=== PATIENT | female | born 1995 | race Caucasian/White ===

== ENCOUNTER 2016-06-22 22:15 | Emergency (ER) | payer OTHER ==
[~2016-06-22] VITALS: Ht 157.5 cm; Wt 78.2 kg
[~2016-06-22 22:15] MED LIST: ASCO500T8 PO; Docusate Sodium PO; FERR-74 PO; IBUP800T28 PO; OXYC-284 PO
[2016-06-22 22:17] VITALS: BP 113/78; PULSE 74; RESP 16; O2SAT 94
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
[2016-06-22 23:10] VITALS: BP 113/78; PULSE 74; RESP 16; O2SAT 94
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
== END 2016-06-22 23:10 | disposition home or self-care (01) ==
LOC: SED 22:15
DX: S60.021A Contusion of right index finger without damage to nail, initial encounter (principal); W23.0XXA Caught, crushed, jammed, or pinched between moving objects, initial encounter; Y93.89 Activity, other specified; Y99.8 Other external cause status; Y92.019 Unspecified place in single-family (private) house as the place of occurrence of the external cause; J45.909 Unspecified asthma, uncomplicated

== ENCOUNTER 2016-09-14 18:36 | Emergency (ER) | payer OTHER ==
[~2016-09-14] VITALS: Ht 157.5 cm; Wt 79.5 kg
--- NOTE | 2016-09-14 18:39 | ED.REPORT ---
HPI-Dyspnea / Wheezing Date of Service Sep 14, 2016 ED Provider: Ney Cosme DO The patient is a 21 year old female with a history of asthma and eczema who presents to the ED via EMS with trouble breathing onset just prior to arrival. The patient describes feeling as though her "throat was closing," with pleuritic pain. Associated symptoms include dizziness, chills, and headache. The patient denies fever, dysuria, urinary frequency, facial pressure, cough, or other symptoms. EMS found the patient with a BP of 108/90 and a pulse of 134. She was given 2.5mg Albuterol en route, with complete relief of her symptoms. The patient has had similar symptoms in the past. Nursing Notes Stated Complaint: ASTHMA ATTACK Nursing Notes Reviewed: Yes Allergies: Coded Allergies: No Known Allergies (Unverified Allergy, Unknown, 12/06/13) Scheduled ([Docusate Sodium]) 100 MG CAPSULE 100 MG PO BID Ascorbic Acid (Vitamin C) 500 Mg Tablet 500 MG PO DAILY Ferrous Sulfate (Feosol) 325 Mg Tablet 325 MG PO DAILY Scheduled PRN Ibuprofen (Ibuprofen) 800 Mg Tablet 800 MG PO QID PRN PRN For Pain Oxycodone HCl/Acetaminophen 5-325 (Percocet 5-325) 1 Each Tablet 1-2 EACH PO Q4 PRN PRN For Pain General Time Seen by MD: 18:38 Chief Complaint Other (Trouble Breathing) Hx Obtained From: Patient Arrived By: Ambulance Sudden in Onset?: Yes Onset Occurred: Just prior to arrival Symptom Duration: Since onset Quality: Pleuritic Severity: Current: Moderate Severity: Maximum: Moderate Context Asthma History: Asthma diagnosed Recent Healthcare: No recent doctor visit Similar Sx Previous: Yes Past Medical History Past Medical History Asthma Eczema Past Surgical History None reported Smoking History Never Smoker Ambulatory Status Independent Review of Systems Review of Systems Note: + Trouble breathing described as feeling as though her "throat was closing" - Facial pressure Constitutional: Reports: Chills, Denies: Fever Respiratory: Reports: Pleuritic pain, Denies: Non-productive cough, Shortness of breath Complete sys rev & neg: except as marked. Female: Denies: Dysuria, Urinary frequency Neurologic: Reports: Dizziness, Headache Physical Exam Initial Vital Signs Vital Signs (First) Date Time Temp Pulse Resp B/P Pulse Ox O2 Delivery O2 Flow Rate FiO2 09/14/16 18:42 37.7 126 22 149/77 97 Room Air Initial VS: Reviewed Head / Eyes: Atraumatic, Normocephalic Skin: Warm, Dry, No cyanosis Neurologic: Alert, Oriented, Nonfocal General/Constitutional: Awake, Alert Neck: Supple, Full range of motion, Non-tender Respiratory / Chest: Breath sounds NL, Breath sounds = bilat, No respiratory distress Cardiovascular: Regular rhythm, Heart sounds NL Heart Rate / Rhythm: Positive: Tachycardia ENT: Airway patent, Mucous membranes moist, Pharynx NL, No facial swelling Interpretation & Diagnostics Lab Results Interpretation Result Diagram: 09/14/16184909/[id number]/161849 Test 09/14/16 18:50 09/14/16 19:18 White Blood Count 5.0th/mm3 (3.8-10.1) Red Blood Count 4.52mil/mm3 (3.90-5.20) Hemoglobin 12.9g/dL (12.0-15.6) Hematocrit 38.6% (35.0-46.0) Mean Corpuscular Volume 85.4fL (81-100) Mean Corpuscular Hemoglobin 28.5pg (27.0-35.0) Mean Corpuscular Hemoglobin Concent 33.4% (32.0-37.0) Red Cell Distribution Width 13.6% (12.3-15.4) Platelet Count 279bil/L (150-400) Neutrophils (%) (Auto) 65.8% (40-74) Lymphocytes (%) (Auto) 22.0% (14-46) Monocytes (%) (Auto) 11.6% (4-12) Eosinophils (%) (Auto) 0.2% (0-5) Basophils (%) (Auto) 0.2% (0-3) Hold Purple Top Tube Received (Received) Hold Blue Top Tube Received (Received) Sodium Level 136mEq/L (134-144) Potassium Level 3.9mEq/L (3.5-5.2) Chloride Level 101mEq/L (97-108) Carbon Dioxide Level 18mmol/L (18-29) Blood Urea Nitrogen 8mg/dL (6-20) Creatinine 0.56mg/dL (0.57-1.00) Estimat Glomerular Filtration Rate 194mL/min (>59) Glucose Level 115mg/dL (60-99) Calcium Level 9.9mg/dL (8.5-10.1) Total Bilirubin 0.2mg/dL (0.0-1.2) Aspartate Amino Transf (AST/SGOT) 20U/L (0-50) Alanine Aminotransferase (ALT/SGPT) 14U/L (0-32) Alkaline Phosphatase 84U/L (25-150) Total Protein 8.0g/dL (6.4-8.4) Albumin 4.4g/dL (3.4-5.0) Hold Arena Top Tube Received (Received) Urine Color Yellow (YELLOW) Urine Appearance Clear (CLEAR,HAZY) Urine pH 5.5 (5.0-8.0) Urine Specific [place] 1.010 (1.003-1.035) Urine Protein Negativemg/dL (NEG,TRACE) Urine Glucose (UA) Negativemg/dL (NEGATIVE) Urine Ketones Negativemg/dL (NEGATIVE) Urine Occult Blood Small (NEGATIVE) Urine Nitrite Negative (NEGATIVE) Urine Bilirubin Negative (NEGATIVE) Urine Urobilinogen Normalmg/dL (NORMAL) Urine Leukocyte Esterase Small (NEGATIVE) Urine RBC 0-2/hpf (0-2) Urine WBC 0-5/hpf (0-5) Urine Epithelial Cells Moderate/hpf (NONE-MOD) Urine Crystals None seen (NONE SEEN) Urine Bacteria Moderate/hpf (NONE-FEW) Urine Hyaline Casts None/lpf (NONE) Urine Granular Casts None seen (NONE SEEN) Urine Waxy Casts None seen (NONE SEEN) Urine Red Blood Cell Casts None seen (NONE SEEN) Urine White Blood Cell Casts None seen (NONE SEEN) Urine Mucus None seen (None Seen) Urine Trichomonas None seen (NONE SEEN) Urine Yeast None (NONE SEEN) Urinalysis Comment None Urine Culture Reflexed Indicated Hold Urine Received (Received) X-Ray Chest Interpretation Chest Xray Interpretation: IMPRESSION: No acute disease is seen in the two-view chest. Lungs are not hyperinflated. Dictated by: Oneil Palacios M.D. on 09/14/2016 at 19:44 View: AP & lat Interpretation / Wet Read by: Interpret - Radiologist Re-Eval/Medical Decision Med Decision/Clinical Course 21-year-old female with a history of asthma currently on twice daily inhaled steroids and as needed albuterol presenting with an episode of feeling that her throat was closing and feeling short of breath. EMS gave her albuterol nebulizer and her symptoms improved, however she was brought in for evaluation. Her workup today is completely negative and it seems unlikely that a flare up of asthma would resolve with 1 single dose of albuterol and have no residual symptoms, however patient states this is typical for her. I instructed her to follow up with her PCP at discharge Re-Evaluation/Progress : Time of Eval: 20:14 )( Re-Eval Resp / Chest: No respiratory distress Patient Status: Condition improved Re-Evaluation/Progress Note: Discussed with patient x-ray and lab results, diagnosis, and plan for discharge. Follow-up and return to the ER instructions given. Patient agrees with plan for care and all questions were addressed. Counseled Regarding: Diagnosis, Lab results, Need for follow-up, When/why to return to ED Discharge & Departure Impression: Primary Impression: Asthma Asthma severity: mild intermittent Asthma complication type: uncomplicated Qualified Code: J45.20 - Mild intermittent asthma, uncomplicated Disposition: Home Discharge Condition All VS Reviewed: Yes Condition: Improved Patient Instructions: Asthma (ED) Additional Instructions: Thank you for entrusting us with your care. Your exam today was reassuring for any serious illness. Your lab work and x-ray were normal. Use your emergency inhaler as needed. Keep using your steroid inhaler as prescribed. Call your primary care provider on Friday for a follow-up appointment as needed. Return to the ER with any new or worsening symptoms. Referrals: Stan Bonner MD (PCP) Scribe Attestation Portions of this note were transcribed by Symone Cortez. I, Dr. Cosme, personally performed the history, physical exam, and medical decision-making; I reviewed and confirmed the accuracy of the information in the transcribed note. Signed by: Haim Jefferson, 09/14/2016, 23:30 copies to: Stan Bonner MD, Gary R DO Sep 14, 2016 18:39 SYMONE CORTEZ Sep 14, 2016 19:24
[2016-09-14 18:42] VITALS: BP 149/77; PULSE 126; RESP 22; O2SAT 97
[2016-09-14] MEDS ORDERED: 0.9% Sodium Chloride 1,000 ML IV ONE (19:23)
[2016-09-14 19:34] LABS: BASOPHILS % (AUTO) 0.2 % (0-3); EOSINOPHILS % (AUTO) 0.2 % (0-5); MONOCYTES % (AUTO) 11.6 % (4-12); Mean Corpuscular Hemoglobin 28.5 pg (27.0-35.0); Mean Corpuscular Volume 85.4 fL (81-100); NEUTROPHILS % (AUTO) 65.8 % (40-74); Platelet Count 279 bil/L (150-400)
[2016-09-14 19:44] LABS: APPEARANCE,URINE CLEAR (CLEAR,HAZY); COLOR,URINE YELLOW (YELLOW); OCCULT BLOOD,URINE SMALL (NEGATIVE); PH,URINE 5.5 (5.0-8.0); UROBILINOGEN,URINE NORMAL (NORMAL)
--- NOTE | 2016-09-14 19:52 | DRSVH ---
PROCEDURE: X-RAY CHEST, TWO VIEWS ([id number]) INDICATIONS: shortness of breath, history of asthma TECHNIQUE: 2 views of the chest were acquired. COMPARISON: None. FINDINGS: Surgical changes and devices: None. Lungs and pleura: No pleural effusions or pneumothorax. Lungs are clear. Mediastinum: Mediastinal contours are normal. Heart size is normal. Bones and chest wall: No suspicious bony abnormalities. Soft tissues appear unremarkable. IMPRESSION: No acute disease is seen in the two-view chest. Lungs are not hyperinflated. Dictated by: Oneil Palacios M.D. on 09/14/2016 at 19:44 Approved by: Oneil Palacios M.D. on 09/14/2016 at 19:50
[2016-09-14 20:59] VITALS: BP 134/76; PULSE 20; RESP 20; O2SAT 100
== END 2016-09-14 20:40 | disposition home or self-care (01) ==
LOC: SED 18:36
DX: J45.20 Mild intermittent asthma, uncomplicated (principal); L30.9 Dermatitis, unspecified; Z79.51 Long term (current) use of inhaled steroids
CPT/HCPCS: 71020; 80053; 81000; 85025; 87086; 87088; 96360; 99285; J7030

== ENCOUNTER 2016-11-07 13:03 | Emergency (ER) | payer OTHER ==
[~2016-11-07] VITALS: Ht 157.5 cm; Wt 77.3 kg
[2016-11-07 13:04] VITALS: BP 133/91; PULSE 74; RESP 15; O2SAT 99
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
--- NOTE | 2016-11-07 14:35 | DRSVH ---
PROCEDURE: CT BRAIN WITHOUT CONTRAST ([id number]) INDICATIONS: headaches, cervical and lumbar tenderness TECHNIQUE: Noncontrast 4.5 mm thick angled axial sections acquired from the foramen magnum to the vertex, with c oronal reformats. COMPARISON: None. FINDINGS: Image quality: Excellent. CSF spaces: Basal cisterns are patent. No extra-axial fluid collections. Ventricles are normal in size and shape. Brain: No midline shift. No intracranial masses or hemorrhage. Villavicencio-white matter interface is norm al. Skull and face: Calvarium and visualized facial bones are intact, without suspicious lesions. Sinuses: There are partially visualized bilateral maxillary sinus mucus retention cysts. Visualized sinuses and mastoids are otherwise clear. IMPRESSION: 1. No acute intracranial findings. Dictated by: Erica Antony M.D. on 11/07/2016 at 14:29 Approved by: Erica Antony M.D. on 11/07/2016 at 14:33
--- NOTE | 2016-11-07 15:13 | DRSVH ---
PROCEDURE: CT CERVICAL SPINE WITHOUT CONTRAST ([id number]) INDICATIONS: headaches, cervical and lumbar tenderness TECHNIQUE: Noncontrast 3 mm thick sections acquired from the skull base to the T4 level. Sagittal and coronal r eformats were then constructed. For radiation dose reduction, the following was used: automated exp osure control, adjustment of mA and/or kV according to patient size. COMPARISON: [facility], CT, CT BRAIN WO CON, 11/07/2016, 14:12. FINDINGS: Image quality: Excellent. Bones: No fractures or dislocations. Visualized superior ribs are intact. Soft tissues: Prevertebral soft tissues are normal in thickness. No paravertebral hematomas. No ap ical pneumothoraces. IMPRESSION: Normal cervical spine CT. Dictated by: Margie Grey M.D. on 11/07/2016 at 14:09 Approved by: Margie Grey M.D. on 11/07/2016 at 14:12
--- NOTE | 2016-11-07 15:17 | DRSVH ---
PROCEDURE: CT LUMBAR SPINE WITHOUT CONTRAST ([id number]) INDICATIONS: headaches, cervical and lumbar tenderness TECHNIQUE: Noncontrast 3 mm thick sections acquired from the T12 level to the sacrum. Sagittal and coronal refo rmats were constructed. For radiation dose reduction, the following was used: automated exposure co ntrol. COMPARISON: None. FINDINGS: Image quality: Excellent. Bones: There is normal bony alignment. No acute vertebral body compression fractures. No suspiciou s lytic or blastic bony lesions. Central spinal caliber is of normal overall caliber. No pars defec ts. Soft tissues: No retroperitoneal masses or hematomas. Visualized aorta is normal in caliber. IMPRESSION: 1. No acute abnormalities in lumbar spine. If clinical symptoms persist, MRI is suggested for further evaluation. Dictated by: Margie Grey M.D. on 11/07/2016 at 14:12 Approved by: Margie Grey M.D. on 11/07/2016 at 14:16
[2016-11-07 15:40] VITALS: BP 114/75; PULSE 66; RESP 20; O2SAT 99
== END 2016-11-07 15:41 | disposition home or self-care (01) ==
LOC: SED 13:03
DX: S39.012A Strain of muscle, fascia and tendon of lower back, initial encounter (principal); S16.1XXA Strain of muscle, fascia and tendon at neck level, initial encounter; V43.52XA Car driver injured in collision with other type car in traffic accident, initial encounter; Y92.410 Unspecified street and highway as the place of occurrence of the external cause; Y93.89 Activity, other specified; Y99.8 Other external cause status; R03.0 Elevated blood-pressure reading, without diagnosis of hypertension; J45.909 Unspecified asthma, uncomplicated
CPT/HCPCS: 70450; 72125; 72131; 81025; 96372; 99285; J1885